=== PATIENT | male | born 1940 | race Caucasian/White ===

== ENCOUNTER 2018-11-19 20:49 | Observation (INO) | payer MEDICARE, OTHER ==
[2018-11-19] MEDS ORDERED: ASPIRIN 81 MG PO STA (21:21)
[2018-11-19] MEDS ORDERED: NITROGLYCERIN OINT 1 INCH/GM PACKET TOPICAL STA (21:21)
[2018-11-19] MEDS ORDERED: HEPARIN SODIUM,PORCINE 5,000 UNIT/ML 1 ML VIAL IV STA (21:21)
[2018-11-19] MEDS ORDERED: HEPARIN SOD,PORK IN 0.45% NACL 25,000 UNIT in 0.45% NACL 1 250ML.BAG IV SCH (21:30)
--- NOTE | 2018-11-19 21:46 | ED ---
Chest Pain HPI - General Chief Complaint: Chest Pain Stated Complaint: Chest Pain Time Seen by Provider: 11/19/18 21:21 Source: patient Mode of arrival: ambulatory Limitations: no limitations - History of Present Illness Initial Comments: Gabriel is a pleasant 78 her old gentleman with a known history of coronary artery disease who presents to the emergency department today for evaluation of chest pain. Patient reports that he's had some mild chest pain throughout the day today, his evening he had worsening chest pain, diaphoresis and shortness of breath that he was concerned was his heart so he took 1 nitro sublingual. Patient reports that his chest pain improved after taking the nitro at which point he decided he probably needed to come to the hospital for evaluation. Patient reports while awaiting a ride to the hospital he developed worsening chest pain and took a second nitro which again helped his chest pain. Patient reports that he has known coronary artery disease, he was hospitalized in [place] one or 2 years ago for a heart attack and had a cardiac catheterization at that point however was told that they were unable to stent his arteries. 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 He states he takes a baby aspirin daily no other blood thinners antiplatelet agents. The patient denies any associated fevers, chills, cough, nausea or vomiting. He does report that he is under a lot of emotional stress right now and thinks stress could be contributing to his symptoms. - Related Data Home Medications Medication Instructions Recorded Confirmed Agus 1 cap PO DAILY 11/19/18 11/19/18 Allopurinol [Zyloprim] 300 mg PO HS 11/19/18 11/19/18 Aspirin EC [Ecotrin Low Dose] 81 mg PO HS 11/19/18 11/19/18 Atorvastatin [Lipitor] 40 mg PO HS 11/19/18 11/19/18 Carvedilol [Coreg] 3.125 mg PO BID 11/19/18 11/19/18 Cholecalciferol (Vitamin D3) 2,000 unit PO DAILY 11/19/18 11/19/18 [Vitamin D3] Fish Oil/Dha/Epa [Fish Oil 1,200 1 cap PO HS 11/19/18 11/19/18 mg Fish Oil] Gabapentin [Neurontin] 200 mg PO BID 11/19/18 11/19/18 Insulin NPL/Insulin Lispro See Protocol SQ DIRECTED 11/19/18 11/19/18 [humaLOG MIX 75-25 VIAL] Losartan Potassium 100 mg PO DAILY 11/19/18 11/19/18 Niacinamide 500 mg PO BID 11/19/18 11/19/18 Nitroglycerin Sl Tabs [Nitrostat] 0.4 mg SUBLINGUAL Q5M PRN 11/19/18 11/19/18 Ubidecarenone [Co Q-10] 400 mg PO BID 11/19/18 11/19/18 Vitamin B Complex 1 cap PO DAILY 11/19/18 11/19/18 Allergies Allergy/AdvReac Type Severity Reaction Status Date / Time Sulfa (Sulfonamide Allergy Unknown Verified 11/19/18 22:14 Antibiotics) Childhood Review of Systems ROS Statement: Those systems with pertinent positive or pertinent negative responses have been documented in the HPI. ROS Other: All systems not noted in ROS Statement are negative. EKG Findings - EKG Comments: EKG Findings:: EKG was obtained due to complaint of chest pain, EKG was obtained at 2118, rate is 61 and rhythm is sinus with first-degree AV block, is normal axis, OR prolonged 216, QRS is narrow 98, QTC is 428, there are no acute ST elevations or depressions there is no evidence of acute ischemia or infarction Past Medical History Past Medical History: Chest Pain / Angina, Diabetes Mellitus History of Any Multi-Drug Resistant Organisms: None Reported Past Surgical History: Heart Catheterization, Orthopedic Surgery, Tonsillectomy Additional Past Surgical History / Comment(s): TURP Past Psychological History: No Psychological Hx Reported Smoking Status: Former smoker Past Alcohol Use History: Rare Past Drug Use History: None Reported General Exam - General Exam Comments Initial Comments: Physical Exam GENERAL: Patient is well-developed and well-nourished. Patient is nontoxic and well- hydrated and is in no distress. HENT: Normocephalic, Atraumatic. EYES: PERRL, EOMI PULMONARY: Unlabored respirations. No audible rales rhonchi or wheezing was noted. CARDIOVASCULAR: There is a regular rate and rhythm without any murmurs gallops or rubs. ABDOMEN: Soft and nontender with normal bowel sounds. SKIN: Skin is clear with no lesions or rashes and otherwise unremarkable. : Deferred NEUROLOGIC: Patient is alert and oriented x3. Moving all extremities spontaneously MUSCULOSKELETAL: Normal extremities with adequate strength and full range of motion. No lower extremity swelling or edema. No calf tenderness. PSYCHIATRIC: Normal psychiatric evaluation. Limitations: no limitations Course Vital Signs 11/19/18 11/19/18 20:50 21:50 Temperature 98.2 F Pulse Rate 64 68 Respiratory 18 18 Rate Blood Pressure 181/81 138/76 O2 Sat by Pulse 96 95 Oximetry Chest Pain MDM - MDM Patient was seen and evaluated upon arrival in the emergency department. This is 78-year-old gentleman with known history of coronary artery disease presenting with chest pain that was relieved by nitro. Given this history is highly concerning for cardiac etiology, chest pain was associated with diaphoresis and lightheadedness. Patient hemodynamically stable with no contraindications to heparin therefore a full cardiac workup, nitro paste and heparin were ordered. EKG is nonischemic, patient does have prolonged OR and left anterior fascicular block, no previous for comparison Labs resulted with mildly elevated BUN and creatinine, no previous for comparison. Troponin is not elevated Patient care was discussed with Dr. Boyd of the [facility] who agrees with plan for heparin, admission, cardiology consultation Critical Care Time Critical Care Time: Yes Total Critical Care Time: 30 Disposition Clinical Impression: Chest pain Disposition: ADMITTED IP TO THIS [facility] Condition: Stable Referrals: None,Stated [Primary Care Provider] - 1-2 days
[2018-11-19 22:02] LABS: Basophils # (A) 0.1 k/uL (0-0.2); Basophils % (A) 1 %; Eosinophils # (A) 0.6 k/uL (0-0.7); Eosinophils % (A) 5 %; HCT 44.4 % (39.0-53.0); HGB 14.2 gm/dL (13.0-17.5); Lymphocytes # (A) 1.6 k/uL (1.0-4.8); Lymphocytes % (A) 13 %; MCH 29.7 pg (25.0-35.0); MCHC 32.1 g/dL (31.0-37.0); MCV 92.5 fL (80.0-100.0); Mean Platelet Volume 7.6; Monocytes # (A) 0.9 k/uL (0-1.0); Monocytes % (A) 7 %; Neutrophils # (A) 8.8 k/uL (1.3-7.7); Neutrophils % (A) 72 %; Platelet Count 176 k/uL (150-450); WBC 12.2 k/uL (3.8-10.6)
[2018-11-19 22:07] LABS: Calcium 9.1 mg/dL (8.4-10.2); Magnesium 1.9 mg/dL (1.6-2.3); Potassium 4.2 mmol/L (3.5-5.1); Total Bilirubin 0.6 mg/dL (0.2-1.3); Total Protein 6.9 g/dL (6.3-8.2)
[2018-11-19 22:19] LABS: Prothrombin Time 10.9 sec (9.0-12.0)
[2018-11-19 22:20] LABS: Partial Thromboplastin Time 20.2 sec (22.0-30.0)
--- NOTE | 2018-11-19 22:22 | XR ---
EXAM: XR Chest, 2 Views CLINICAL HISTORY: ITS.REASON XR Reason: Chest Pain TECHNIQUE: Frontal and lateral views of the chest. COMPARISON: No relevant prior studies available. FINDINGS: Lungs: Mild lower lung atelectasis or developing infiltrate. Pleural space: No significant pleural effusion or pneumothorax. Heart: Unremarkable. Mediastinum: Mildly prominent mediastinal silhouette, may be related to ectatic/tortuous aorta or other etiologies. Bones/joints: No acute fracture. IMPRESSION: Mild lower lung atelectasis or developing infiltrate.
[2018-11-20] MEDS: ALPRAZolam 0.5 MG TAB PO PRN ×2 (00:14→14:30)
[2018-11-20] MEDS ORDERED: ATORVASTATIN 40 MG TAB PO SCH (00:15)
--- NOTE | 2018-11-20 00:22 | P.HPIM ---
History of Present Illness H&P Date: 11/19/18 Chief Complaint: chest pain 78-year-old male with history of CAD, diabetes mellitus, CK D stage III Patient presented to the hospital due to chest tightness. He reports history of CAD diagnosed 1 or 2 years ago he had a left heart cath however stent was not placed due to difficulties with procedure. Since then he denies any anginal pain however he takes life easier and tries to place himself he has some knee problems which limits his activity however when he is in [place] is able to swim and he spends a lot of time swimming with no limitations in regards of any exer tional dyspnea or chest pain or trouble breathing. Today he reports that he's been stressed out over the past few days driving around running errands and today after his dinner he had some chest tightness associated with feeling nauseous and sweaty and clammy with some labored breathing. He took a nitro pill and helped a little bit with his symptoms pain was not radiating to rated it as 8 out of 10 in severity central over the chest nonradiating. He called a cab and was brought into the hospital in route he experienced this another episode for which she took another nitro in the ED his EKG was unremarkable history of seronegative he had high blood pressure. Otherwise he denies any fevers or chills runny nose or sore throat denies any diarrhea or changes in his bowel or urinary habits denies any abdominal pain. He also reports some nagging cough that's been going on for a while. Chest x- ray suggested some possible infiltrates, patient had elevated white count. No fevers Review of Systems Pertinent positives as noted in HPI. All other systems were reviewed and are negative Past Medical History Past Medical History: Chest Pain / Angina, Diabetes Mellitus History of Any Multi-Drug Resistant Organisms: None Reported Past Surgical History: Heart Catheterization, Orthopedic Surgery, Tonsillectomy Additional Past Surgical History / Comment(s): TURP Past Psychological History: No Psychological Hx Reported Smoking Status: Former smoker Past Alcohol Use History: Rare Past Drug Use History: None Reported - Past Family History Family Family Medical History: Coronary Artery Disease (CAD) Medications and Allergies Home Medications Medication Instructions Recorded Confirmed Type Agus 1 cap PO DAILY 11/19/18 11/19/18 History Allopurinol [Zyloprim] 300 mg PO HS 11/19/18 11/19/18 History Aspirin EC [Ecotrin Low Dose] 81 mg PO HS 11/19/18 11/19/18 History Atorvastatin [Lipitor] 40 mg PO HS 11/19/18 11/19/18 History Carvedilol [Coreg] 3.125 mg PO BID 11/19/18 11/19/18 History Cholecalciferol (Vitamin D3) 2,000 unit PO DAILY 11/19/18 11/19/18 History [Vitamin D3] Fish Oil/Dha/Epa [Fish Oil 1,200 1 cap PO HS 11/19/18 11/19/18 History mg Fish Oil] Gabapentin [Neurontin] 200 mg PO BID 11/19/18 11/19/18 History Insulin NPL/Insulin Lispro See Protocol SQ DIRECTED 11/19/18 11/19/18 History [humaLOG MIX 75-25 VIAL] Losartan Potassium 100 mg PO DAILY 11/19/18 11/19/18 History Niacinamide 500 mg PO BID 11/19/18 11/19/18 History Nitroglycerin Sl Tabs [Nitrostat] 0.4 mg SUBLINGUAL Q5M PRN 11/19/18 11/19/18 History Ubidecarenone [Co Q-10] 400 mg PO BID 11/19/18 11/19/18 History Vitamin B Complex 1 cap PO DAILY 11/19/18 11/19/18 History Allergies Allergy/AdvReac Type Severity Reaction Status Date / Time Sulfa (Sulfonamide Allergy Unknown Verified 11/19/18 22:14 Antibiotics) Childhood Physical Exam Vitals: Vital Signs Temp Pulse Resp BP Pulse Ox 11/19/18 21:50 68 18 138/76 95 11/19/18 20:50 98.2 F 64 18 181/81 96 Intake and Output 11/19/18 11/19/18 11/20/18 14:59 22:59 06:59 Other: Weight 129.727 kg Constitutional: No acute distress, conversant, pleasant Eyes: Anicteric sclerae, moist conjunctiva, no lid-lag Pupils equal round reactive to light ENMT: NC/AT Oropharynx clear, no erythema, exudates Neck: Supple, FROM, no masses, or JVD No carotid bruits No thyromegaly Lungs: Clear to auscultation Clear to percussion Normal respiratory effort, no accessory muscle use Cardiovascular: Heart regular in rate and rhythm, No murmurs, gallops, or rubs + Leg edema bilaterally Abdominal: Soft Nontender, no guarding, rebound or rigidity Abdomen moving with respiration Normoactive bowel sounds No hepatomegaly, No splenomegaly No palpable mass No abdominal wall hernia noted Skin: Normal temperature, tone, texture, turgor No induration No subcutaneous nodules No rash, lesions No ulcers Continue his blood glucose monitor on his right arm, chronic skin changes over bilateral lower extremity over the lower third of bilateral legs Extremities: No digital cyanosis No clubbing Pedal pulses intact and symmetrical Radial pulses intact and symmetrical No calf tenderness Psychiatric: Alert and oriented to person, place and time Appropriate affect fair judgment Neuro Muscles Strength 5/5 in all 4 extremities Sensation to light touch grossly present throughout Cranial nerves II-XII grossly intact No focal sensory deficits Lymphatics: no palpable cervical or supraclavicular , or inguinal lymph nodes Results CBC & Chem 7: 11/19/18 21:40 11/19/18 21:40 Labs: Abnormal Lab Results - Last 24 Hours (Table) 11/19/18 11/19/18 11/19/18 Range/Units 21:40 21:40 21:40 WBC 12.2 H (3.8-10.6) k/uL Neutrophils # 8.8 H (1.3-7.7) k/uL APTT 20.2 L (22.0-30.0) sec Chloride 111 H (98-107) mmol/L BUN 35 H (9-20) mg/dL Creatinine 1.46 H (0.66-1.25) mg/dL Glucose 104 H (74-99) mg/dL Assessment and Plan Assessment: 78-year-old male with history of diabetes, CAD, CK D stage III admitted under observation with anticipated length of stay less than 48 hours for chest pain with typical features to rule out acute coronary syndrome. Patient also has hypertensive urgency. Plan: Chest pain with atypical features rule out ACS History of CAD Continue with home meds including statin and aspirin Continue blood pressure meds Cardiac monitoring Nitropaste Heparin drip Trend cardiac enzymes Cardiology consult Pain control Xanax for anxiety EKG showed no ST changes, suggested first-degree AV block. Hypertensive urgency Resume home meds Clonidine when necessary for high blood pressure above 180 systolic Chronic conditions Diabetes mellitus continue with insulin sliding scale CK D stage II currently stable Bilateral dependent leg edema chronic in nature at baseline Subacute cough No fevers or chills Chest x-ray suggested possible infiltrates versus atelectasis I will start the patient on Levaquin for 5 days to treat community-acquired pneumonia Surrogate decision-maker: CODE STATUS full code Discussed with: Patient, ER, RN Anticipated discharge: Less than [address]: Home A total of 55 minutes was spent on the care of this complex patient more than 50% of the time was spent in counseling and care coordination.
[2018-11-20] MEDS ORDERED: cloNIDine HCL 0.2 MG TAB PO PRN (00:24)
[2018-11-20] MEDS ORDERED: LEVOFLOXACIN 500 MG TAB PO STA (00:25)
[2018-11-20] MEDS: NITROGLYCERIN OINT 1 INCH/GM PACKET TOPICAL SCH ×2 (00:56→05:09)
[2018-11-20] MEDS ORDERED: AZITHROMYCIN 500 MG TAB PO SCH (00:56)
[2018-11-20] MEDS: GABAPENTIN 100 MG CAP PO SCH ×2 (00:58→13:29)
[2018-11-20] MEDS: CARVEDILOL 3.125 MG TAB PO SCH ×3 (00:58→18:00)
[2018-11-20 04:32] LABS: Cholesterol 139 mg/dL (<200); HDL Cholesterol 29 mg/dL (40-60); LDL Cholesterol,Calculated 82 mg/dL (0-99); Triglycerides 142 mg/dL (<150)
[2018-11-20 06:40] LABS: Glucose,Whole Blood 129 mg/dL (75-99)
[2018-11-20] MEDS: INSULIN ASPART (NovoLOG) 100 UNIT/ML VIAL SQ SCH ×3 (08:50→17:22)
[2018-11-20] MEDS ORDERED: ASPIRIN 325 MG TAB PO SCH (09:00)
[2018-11-20] MEDS ORDERED: LOSARTAN 50 MG TAB PO SCH (09:00)
[2018-11-20 09:25] LABS: Cholesterol 144 mg/dL (<200); HDL Cholesterol 31 mg/dL (40-60); LDL Cholesterol,Calculated 83 mg/dL (0-99); Triglycerides 150 mg/dL (<150)
[2018-11-20] MEDS ORDERED: DOBUTamine DRIP for NUC MED 500 MG in DEXTROSE/WATER 1 250ML.BAG IV ONE (10:03)
--- NOTE | 2018-11-20 10:38 | XR ---
EXAMINATION TYPE: XR chest 2V DATE OF EXAM: 11/20/2018 COMPARISON: 11/19/2018 TECHNIQUE: PA and lateral views submitted. HISTORY: Chest pain FINDINGS: Subsegmental changes involving the right lower lobe are again noted and stable. No pleural effusion o r pneumothorax. Heart size normal. Hypertrophic and degenerative change of the spine. IMPRESSION: 1. Atelectasis favored over pneumonia correlate clinically.
--- NOTE | 2018-11-20 11:52 | P.CRDCN ---
History of Present Illness History of present illness: This is a pleasant 78 showed male past medical history significant for coronary artery disease in the setting of an acute myocardial infarction in 2018 while in [place], hypertension, diabetes mellitus, chronic lumbar back pain secondary to spinal stenosis, chronic kidney disease, obstructive sleep apnea and obesity. 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 They recently purchased a home here in [place] for the [place]. We have asked him in consultation secondary to chest discomfort. He states around 4:00 yesterday afternoon while driving home from [place] he started feeling a pressure sensation in the left precordial region. He states it was a particularly stressful drive as well as other stressors going on in his life that he associated this discomfort with stress and anxiety. However upon arriving home his discomfort persisted. There was no radiation of the pain to the arm, back, neck or jaw however he did feel diaphoretic, short of breath and briefly was nauseated. There is no vomiting or palpitations. His symptoms subsided upon arrival to the emergency department after receiving Nitropaste. He is seen and examined resting comfortably in bed with his at the bedside in no acute distress. No further chest discomfort since arriving at the hospital. He also states for the previous one week he feels increased shortness of breath, lower extremity edema and feels that his abdomen is becoming more fall. Also no blood pressure was elevated upon arrival 181/81, 200/94. He states he had taken all of his prescribed medications. EKG reveals sinus mechanism, first-degree AV block heart rate of 61, left anterior fascicular block. No acute ST or T wave abnormalities noted. Chest x-ray reveals mid lower lung atelectasis versus possible developing infiltrate. Laboratory data reviewed, WBC 12.2, hemoglobin 14.2, platelets 176, sodium 143, potassium 4.2, creatinine 1.46 with a GFR 46, magnesium 1.9, cardiac enzymes negative 2, proBNP 123, LDL 82. Current cardiac medications include carvedilol 3.125 mg twice a day, losartan 100 mg daily, atorvastatin 40 mg daily and aspirin 81 mg daily. At the time of my exam: CONSTITUTIONAL: Denies fever. Denies chills. EYES: Denies blurred vision. Denies vision changes. Denies eye pain. EARS, NOSE, MOUTH & THROAT: Denies headache. Denies sore throat. Denies ear pain. CARDIOVASCULAR: Denies chest pain. Denies shortness of breath. Denies orthopnea. Denies PND. Denies palpitations. RESPIRATORY: Denies cough. GASTROINTESTINAL: Denies abdominal pain. Denies diarrhea. Denies constipation. Denies nausea. Denies vomiting. MUSCULOSKELETAL: Denies myalgias. INTEGUMENTARY: Denies pruitis. Denies rash. NEUROLOGIC: Denies numbness. Denies tingling. Denies weakness. PSYCHIATRIC: Denies anxiety. Denies depression. ENDOCRINE: Denies fatigue. Denies weight change. Denies polydipsia. Denies polyurina. GENITOURINARY: Denies burning, hematuria or urgency with micturation. HEMATOLOGIC: Denies history of anemia. Denies bleeding. Blood pressure 160/79 heart rate 57 afebrile maintaining oxygen saturation on room air GENERAL: This is a 78-year-old male in no apparent distress at the time of my examination. HEENT: Head is atraumatic, normocephalic. Pupils are equal, round. Sclerae anicteric. Conjunctivae are clear. Mucous membranes of the mouth are moist. Neck is supple. There is no jugular venous distention. No carotid bruit is heard. LUNGS: Clear to auscultation no wheezes, rales or rhonchi. No chest wall tenderness is noted on palpation or with deep breathing. HEART: Regular rate and rhythm without murmurs, rubs or gallops. S1 and S2 heard. ABDOMEN: Soft, nontender. Bowel sounds are heard. No organomegaly noted. EXTREMITIES: No evidence of peripheral edema and no calf tenderness noted. VASCULAR: Radial and dorsalis pedis pulses palpated, no evidence of clubbing. NEUROLOGIC: Patient is awake, alert and oriented x3. ASSESSMENT Precordial chest pain. An acute coronary event has been ruled out. History of coronary artery disease in the setting of an acute myocardial infarction. The patient states he had an occlusion in the RCA that was thought to be chronic and he underwent no stenting at that time. He denies history of heart failure. Leukocytosis Hypertension Dyslipidemia Diabetes mellitus PLAN An acute coronary event has been ruled out. No EKG evidence of acute ischemia. Discontinue heparin infusion. Obtain 2-D echocardiogram and Doppler study to assess cardiac structure and function. Check d-dimer. Perform dobutamine stress echocardiogram to assess for stress induced ischemia. Thank you kindly for this consultation. Nurse Practitioner note has been reviewed, I agree with a documented findings and plan of care. Patient was seen and examined. Past Medical History Past Medical History: Coronary Artery Disease (CAD), Chest Pain / Angina, Diabetes Mellitus, Hypertension, Myocardial Infarction (MD), Osteoarthritis (OA), Renal Disease Last Myocardial Infarction Date:: 2016 History of Any Multi-Drug Resistant Organisms: None Reported Past Surgical History: Heart Catheterization, Orthopedic Surgery, Tonsillectomy Additional Past Surgical History / Comment(s): TURP Past Anesthesia/Blood Transfusion Reactions: No Reported Reaction Past Psychological History: No Psychological Hx Reported Smoking Status: Former smoker Past Alcohol Use History: Rare Past Drug Use History: None Reported - Past Family History Family Family Medical History: Coronary Artery Disease (CAD) Medications and Allergies Home Medications Medication Instructions Recorded Confirmed Type Agus 1 cap PO DAILY 11/19/18 11/19/18 History Allopurinol [Zyloprim] 300 mg PO HS 11/19/18 11/19/18 History Aspirin EC [Ecotrin Low Dose] 81 mg PO HS 11/19/18 11/19/18 History Atorvastatin [Lipitor] 40 mg PO HS 11/19/18 11/19/18 History Carvedilol [Coreg] 3.125 mg PO BID 11/19/18 11/19/18 History Cholecalciferol (Vitamin D3) 2,000 unit PO DAILY 11/19/18 11/19/18 History [Vitamin D3] Fish Oil/Dha/Epa [Fish Oil 1,200 1 cap PO HS 11/19/18 11/19/18 History mg Fish Oil] Gabapentin [Neurontin] 200 mg PO BID 11/19/18 11/19/18 History Insulin NPL/Insulin Lispro See Protocol SQ DIRECTED 11/19/18 11/19/18 History [humaLOG MIX 75-25 VIAL] Losartan Potassium 100 mg PO DAILY 11/19/18 11/19/18 History Niacinamide 500 mg PO BID 11/19/18 11/19/18 History Nitroglycerin Sl Tabs [Nitrostat] 0.4 mg SUBLINGUAL Q5M PRN 11/19/18 11/19/18 History Ubidecarenone [Co Q-10] 400 mg PO BID 11/19/18 11/19/18 History Vitamin B Complex 1 cap PO DAILY 11/19/18 11/19/18 History Allergies Allergy/AdvReac Type Severity Reaction Status Date / Time levofloxacin [From Levaquin] Allergy Nausea & Verified 11/20/18 00:55 Vomiting & Diarrhea Sulfa (Sulfonamide Allergy Unknown Verified 11/19/18 22:14 Antibiotics) Childhood Physical Exam Vitals: Vital Signs Temp Pulse Pulse Resp BP BP BP 11/20/18 07:00 97.6 F 57 L 18 160/79 11/20/18 04:00 97.5 F L 65 18 164/76 11/20/18 00:50 97.5 F L 65 18 186/100 200/94 11/20/18 00:00 70 65 18 183/96 11/19/18 21:50 68 18 138/76 11/19/18 20:50 98.2 F 64 18 181/81 Pulse Ox 11/20/18 07:00 98 11/20/18 04:00 94 L 11/20/18 00:50 96 11/20/18 00:00 94 L 11/19/18 21:50 95 11/19/18 20:50 96 Intake and Output 11/19/18 11/20/18 11/20/18 22:59 06:59 14:59 Other: # Voids 1 1 Weight 129.727 kg Results 11/19/18 21:40 11/19/18 21:40 Cardiac Enzymes 11/19/18 11/19/18 11/20/18 Range/Units 21:40 21:40 03:36 AST 35 (17-59) U/L Troponin I <0.012 <0.012 (0.000-0.034) ng/mL Coagulation 11/19/18 Range/Units 21:40 PT 10.9 (9.0-12.0) sec APTT 20.2 L (22.0-30.0) sec Lipids 11/20/18 Range/Units 03:36 Triglycerides 142 (<150) mg/dL Cholesterol 139 (<200) mg/dL HDL Cholesterol 29 L (40-60) mg/dL CBC 11/19/18 Range/Units 21:40 WBC 12.2 H (3.8-10.6) k/uL RBC 4.80 (4.30-5.90) m/uL Hgb 14.2 (13.0-17.5) gm/dL Hct 44.4 (39.0-53.0) % Plt Count 176 (150-450) k/uL Comprehensive Metabolic Panel 11/19/18 Range/Units 21:40 Sodium 143 (137-145) mmol/L Potassium 4.2 (3.5-5.1) mmol/L Chloride 111 H (98-107) mmol/L Carbon Dioxide 23 (22-30) mmol/L BUN 35 H (9-20) mg/dL Creatinine 1.46 H (0.66-1.25) mg/dL Glucose 104 H (74-99) mg/dL Calcium 9.1 (8.4-10.2) mg/dL AST 35 (17-59) U/L ALT 36 (21-72) U/L Alkaline Phosphatase 59 (38-126) U/L Total Protein 6.9 (6.3-8.2) g/dL Albumin 4.0 (3.5-5.0) g/dL Current Medications Generic Name Dose Route Start Last Admin Trade Name Freq PRN Reason Stop Dose Admin Allopurinol 300 mg 11/20/18 21:00 Zyloprim PO HS KEN Alprazolam 0.5 mg 11/20/18 00:09 11/20/18 00:14 Xanax PO 0.5 mg TID PRN Administration Anxiety Aspirin 325 mg 11/20/18 09:00 Aspirin PO DAILY KEN Atorvastatin Calcium 40 mg 11/20/18 00:15 11/20/18 00:58 Lipitor PO 40 mg HS KEN Administration Azithromycin 500 mg 11/20/18 00:56 11/20/18 01:33 Zithromax PO 500 mg Q24H KEN Administration Carvedilol 3.125 mg 11/20/18 00:15 11/20/18 00:58 Coreg PO 3.125 mg AC-BID KEN Administration Clonidine 0.2 mg 11/20/18 00:24 Catapres PO TID PRN Blood Pressure - High Gabapentin 200 mg 11/20/18 00:15 11/20/18 00:58 Neurontin PO 200 mg BID KEN Administration Heparin Sodium/Sodium Chloride 250 mls @ 9.081 mls/hr 11/19/18 21:30 11/19/18 21:50 25,000 unit/ Sodium Chloride IV 7 units/kg/hr .Q24H KEN 9.081 mls/hr Administration Protocol 7 UNITS/KG/HR Insulin Aspart 0 unit 11/20/18 07:30 Novolog SQ ACHS KEN Protocol Losartan Potassium 100 mg 11/20/18 09:00 Cozaar PO DAILY KEN Nitroglycerin 1 inch 11/20/18 00:00 11/20/18 05:09 Nitro-Bid Oint TOPICAL Not Given Q6HR KEN Niacinamide 500 Mg 500 mg 11/20/18 00:15 11/20/18 00:43 PO Not Given BID [facility] Intake and Output 11/19/18 11/20/18 11/20/18 22:59 06:59 14:59 Other: # Voids 1 1 Weight 129.727 kg 11/19/18 21:40 11/19/18 21:40
--- NOTE | 2018-11-20 12:00 | ECHOF ---
Referral Reason:cp MEASUREMENTS -------- HEIGHT: 182.9 cm WEIGHT: 134.3 kg BP: 160/79 RVIDd: 2.7 cm (< 3.3) IVSd: 1.4 cm (0.6 - 1.1) LVIDd: 4.6 cm (3.9 - 5.3) LVPWd: 1.5 cm (0.6 - 1.1) IVSs: 1.6 cm LVIDs: 3.8 cm LVPWs: 1.6 cm LA Diam: 3.0 cm (2.7 - 3.8) Ao Diam: 3.8 cm (2.0 - 3.7) AV Cusp: 1.7 cm (1.5 - 2.6) LA Diam: 3.5 cm (2.7 - 3.8) MV EXCURSION: 24.729 mm (> 18.000) MV EF SLOPE: 106 mm/s (70 - 150) EPSS: 0.7 cm MV E Joseph: 0.81 m/s MV DecT: 278 ms MV A Joseph: 1.06 m/s MV E/A Ratio: 0.76 RAP: 5.00 mmHg RVSP: 15.25 mmHg FINDINGS -------- Sinus rhythm. This was a technically adequate study. The left ventricular size is normal. There is moderate concentric left ventricular hypertrophy. O verall left ventricular systolic function is low-normal with, an EF between 50 - 55 %. The right ventricle is normal in size. The left atrial size is normal. The right atrial size is normal. There is mild aortic valve sclerosis. There is no evidence of aortic regurgitation. Mild mitral annular calcification present. Mild mitral regurgitation is present. Mild tricuspid regurgitation present. There is no evidence of pulmonary hypertension. The right v entricular systolic pressure, as measured by Doppler, is 15.25mmHg. There is no pulmonic regurgitation present. The aortic root size is normal. There is no pericardial effusion. CONCLUSIONS -------- 1. Sinus rhythm. 2. This was a technically adequate study. 3. The left ventricular size is normal. 4. There is moderate concentric left ventricular hypertrophy. 5. Overall left ventricular systolic function is low-normal with, an EF between 50 - 55 %. 6. The right ventricle is normal in size. 7. The left atrial size is normal. 8. The right atrial size is normal. 9. There is mild aortic valve sclerosis. 10. Mild mitral annular calcification present. 11. Mild mitral regurgitation is present. 12. Mild tricuspid regurgitation present. 13. There is no evidence of pulmonary hypertension. 14. The right ventricular systolic pressure, as measured by Doppler, is 15.25mmHg. 15. There is no pulmonic regurgitation present. 16. The aortic root size is normal. 17. There is no pericardial effusion. [employer] SPECIALIST: Gudelia Lowe RDCS
[2018-11-20 12:49] LABS: Glucose,Whole Blood 137 mg/dL (75-99)
--- NOTE | 2018-11-20 13:17 | ECHOS ---
STRESS ECHOCARDIOGRAM DOBUTAMINE STRESS ECHO DATE OF SERVICE: 11/20/2018 INDICATIONS: Chest pain. MEDICATIONS: BASELINE HEART RATE: 60 BASELINE BLOOD PRESSURE: 161/64 MAXIMUM HEART RATE: 120 MAXIMUM BLOOD PRESSURE: 177/55 85% MPHR: 122 100% MPHR: 144 METS: MAXIMUM STAGE REACHED: TOTAL EXERCISE TIME: CLINICAL INFORMATION: Baseline EKG shows sinus rhythm, normal axis, normal intervals. The patient was given intravenous dobutamine as per protocol, attained maximum heart rate of 120 beats per minute which is 84% of predicted maximal heart rate without chest pain or diagnostic ST- segment depression. Baseline echo shows normal left ventricular size, wall motion and systolic function. Postexercise there is normal hyperdynamic response of all segments of myocardium noted. CONCLUSIONS: 1. Negative stress test by EKG criteria. 2. Negative dobutamine echo. MMODL / IJN: [id number] /
--- NOTE | 2018-11-20 16:15 | NM ---
EXAMINATION TYPE: NM pul vent and perfuse DATE OF EXAM: 11/20/2018 COMPARISON: Chest x-ray from today. HISTORY: Shortness of breath and elevated d-dimer TECHNIQUE: Utilizing inhalation of 43 mCi Tc 99m DTPA aerosol and intravenous injection of 5.2 mCi o f Tc 99m MAA, ventilation and perfusion images are acquired post injection in multiple projections. FINDINGS: Normal radiotracer distribution is noted in the lungs. There is no evidence of mismatched defects. IMPRESSION: Low scintigraphic evidence for pulmonary embolism.
[2018-11-20 16:29] LABS: Glucose,Whole Blood 154 mg/dL (75-99)
[2018-11-20 17:58] VITALS: BP 150/88; PULSE 58; RESP 16
[2018-11-20 18:26] VITALS: TEMP 98.2
[2018-11-20] MEDS ORDERED: ALLOPURINOL 300 MG TAB PO SCH (21:00)
[2018-11-21] MEDS ORDERED: LEVOFLOXACIN 250 MG TAB PO SCH (00:30)
--- NOTE | 2018-11-21 14:35 | P.DS ---
Providers Date of admission: 11/19/18 23:05 Expected date of discharge: 11/20/18 Attending physician: Shonna Zhao MD Consults: 11/19/18 23:03 Consult Physician Urgent Consulting Provider: Cynthia Ochoa Consult Reason/Comments: chest pain, known CAD Do you want consulting provider notified?: Yes Primary care physician: Stated None - Discharge Diagnosis(es) (1) Essential hypertension Status: Acute (2) Type 2 diabetes mellitus Status: Acute (3) Dyslipidemia Status: Acute (4) Chest pain Status: Acute Hospital Course: The patient is a 78-year-old male that was admitted with chest pain with need to rule out ACS after presented with chest pain, initial and subsequent sequential troponins were negative his EKG showed sinus mechanism with first-degree AV block without any suggestion of any acute ischemia. Patient was started on routine chest pain orders he received nitro paste aspirin and was continued on his home regimen including Coreg and losartan and Lipitor after his blood pressure was noted to be elevated in the ER. Amlodipine was also added to his antihypertensive regimen. Dobutamine stress echocardiogram was performed and was negative for any suggestion of reversible ischemia, preserved LVEF of 55-60% without any significant valvular abnormalities was noted on echocardiogram. As part of his workup the patient's total elevated d- dimer and subsequent VQ scan indicated a low probability her likelihood of PE and the patient was subsequently discharged home in stable condition and cleared by cardiology and instructed to follow up with his PCP. This discharge process took approximately 30 minutes. Focused exam Cardiovascular: Regular rate and rhythm, no murmurs rubs or gallops Patient Condition at Discharge: Stable Plan - Discharge Summary Discharge Rx Participant: No New Discharge Prescriptions: New amLODIPine BESYLATE [Norvasc] 10 mg PO DAILY #30 tablet Continue Nitroglycerin Sl Tabs [Nitrostat] 0.4 mg SUBLINGUAL Q5M PRN PRN Reason: Chest Pain Carvedilol [Coreg] 3.125 mg PO BID Aspirin EC [Ecotrin Low Dose] 81 mg PO HS Allopurinol [Zyloprim] 300 mg PO HS Vitamin B Complex 1 cap PO DAILY Niacinamide 500 mg PO BID Fish Oil/Dha/Epa [Fish Oil 1,200 mg Fish Oil] 1 cap PO HS Atorvastatin [Lipitor] 40 mg PO HS Ubidecarenone [Co Q-10] 400 mg PO BID Cholecalciferol (Vitamin D3) [Vitamin D3] 2,000 unit PO DAILY Losartan Potassium 100 mg PO DAILY Gabapentin [Neurontin] 200 mg PO BID Insulin NPL/Insulin Lispro [humaLOG MIX 75-25 VIAL] See Protocol SQ DIRECTED Agus 1 cap PO DAILY Discharge Medication List Agus 1 cap PO DAILY 11/19/18 [History] Allopurinol [Zyloprim] 300 mg PO HS 11/19/18 [History] Aspirin EC [Ecotrin Low Dose] 81 mg PO HS 11/19/18 [History] Atorvastatin [Lipitor] 40 mg PO HS 11/19/18 [History] Carvedilol [Coreg] 3.125 mg PO BID 11/19/18 [History] Cholecalciferol (Vitamin D3) [Vitamin D3] 2,000 unit PO DAILY 11/19/18 [History] Fish Oil/Dha/Epa [Fish Oil 1,200 mg Fish Oil] 1 cap PO HS 11/19/18 [History] Gabapentin [Neurontin] 200 mg PO BID 11/19/18 [History] Insulin NPL/Insulin Lispro [humaLOG MIX 75-25 VIAL] See Protocol SQ DIRECTED 11/19/18 [History] Losartan Potassium 100 mg PO DAILY 11/19/18 [History] Niacinamide 500 mg PO BID 11/19/18 [History] Nitroglycerin Sl Tabs [Nitrostat] 0.4 mg SUBLINGUAL Q5M PRN 11/19/18 [History] Ubidecarenone [Co Q-10] 400 mg PO BID 11/19/18 [History] Vitamin B Complex 1 cap PO DAILY 11/19/18 [History] amLODIPine BESYLATE [Norvasc] 10 mg PO DAILY #30 tablet 11/20/18 [Rx] Follow up Appointment(s)/Referral(s): None,Stated [Primary Care Provider] - 1-2 days Discharge Disposition: HOME SELF-CARE
== END 2018-11-20 18:32 | disposition home or self-care (01) ==
LOC: EC 20:49 → 1SOBS 23:05
PROVIDERS: ADMIT Internal Medicine; ATTEND Internal Medicine
DX: R07.89 Other chest pain (principal); I16.0 Hypertensive urgency; I12.9 Hypertensive chronic kidney disease with stage 1 through stage 4 chronic kidney disease, or unspecified chronic kidney disease; N18.3 Chronic kidney disease, stage 3 (moderate); E11.22 Type 2 diabetes mellitus with diabetic chronic kidney disease; I25.10 Atherosclerotic heart disease of native coronary artery without angina pectoris; I44.4 Left anterior fascicular block; R79.89 Other specified abnormal findings of blood chemistry; D72.829 Elevated white blood cell count, unspecified; R05 Cough; R61 Generalized hyperhidrosis; I44.0 Atrioventricular block, first degree; R60.0 Localized edema; G47.33 Obstructive sleep apnea (adult) (pediatric); G89.29 Other chronic pain; M54.5 Low back pain; M48.061 Spinal stenosis, lumbar region without neurogenic claudication; F41.9 Anxiety disorder, unspecified; E78.5 Hyperlipidemia, unspecified; M19.90 Unspecified osteoarthritis, unspecified site; E66.9 Obesity, unspecified; Z68.38 Body mass index [BMI] 38.0-38.9, adult; Z79.82 Long term (current) use of aspirin; Z79.899 Other long term (current) drug therapy; Z79.4 Long term (current) use of insulin; Z88.2 Allergy status to sulfonamides; Z88.1 Allergy status to other antibiotic agents; Z98.61 Coronary angioplasty status; I25.2 Old myocardial infarction; Z87.891 Personal history of nicotine dependence; Z66 Do not resuscitate; Z82.49 Family history of ischemic heart disease and other diseases of the circulatory system
CPT/HCPCS: 93005 ×2; 96366 ×2; 96376; 96365; 99291; 36415; 93306; 85379; 83880; 80061; 80053; 83735; 84484 ×2; 85025; 85610; 85730 ×2; 71046 ×2; 78582; G0378 ×2; C8930; A9540; A9567; J1250; J1644 ×2; Q9950; 93351